=== PATIENT | male | born 2000 | race Caucasian/White ===

== ENCOUNTER 2021-06-02 10:09 | Emergency (ER) | payer OTHER, SELFPAY ==
[2021-06-02 10:44] VITALS: BP 138/89; PULSE 91; RESP 18; TEMP 36.8; O2SAT 99; BMI 30.1
--- NOTE | 2021-06-02 10:53 | HMH.EDUTC ---
[facility] [place] Clinical Impression: URI (upper respiratory infection) Qualifiers: URI type: unspecified URI Qualified Code(s): J06.9 - Acute upper respiratory infection, unspecified Disposition: Home, Self-Care Condition on Discharge: Good Instructions: Sinusitis, DI for Sinusitis, Cough Additional Instructions: *Monitor Temp, Over the counter Motrin or Tylenol as directed/as needed Tylenol every 4 hours and Motrin every 6 hours (as long as your family doctor has told you that you can take it) for fever or pain. and straight to ER if unable to lower temp less than 101.0 after medication given *Warm salt water gargles may help to soothe the throat *Throat Lozenges *Warm fluids like tea with honey may help to soothe the throat *Sleep elevated *Humidifier/Vaporizer Follow up IMMEDIATELY for new or worsening symptoms or no Noticeable improvement over the next 48-72 hours. 911 for difficulty breathing or swallowing You were tested for today for COVID19 your test result should be back in the next 24-48 hours, you may check your COVID test results on line at the [facility] my Health Portal If you are positive the Health Dept will be contacting you also Make sure to take your Vitamins Vit. C Vit D and Zinc if you can take them Prescriptions: methylPREDNISolone [Medrol 4mg tab] 4 mg PO DIRECTED #21 tab Transmission Status: Pending to [facility] # Azithromycin [Z-Papi 250mg Tab] 250 mg PO DIRECTED #6 tab Transmission Status: Pending to [facility] # Referrals: Justino Sandoval MD [Primary Care Provider] - As needed Time of Disposition: 11:01 Medical Decision Making - North Inquiry Pt receiving controlled substance: No North was queried for this patient: No Vital Signs: 06/02/21 10:44 Temperature 98.3 F Temperature Source Oral Pulse Rate [Right Brachial] 91 H Respiratory Rate 18 Blood Pressure [Right Arm] 138/89 Blood Pressure Mean [Right Arm] 105 Blood Pressure Source [Right Arm] Automatic Cuff Blood Pressure Position [Right Arm] Sitting 02 Sat by Pulse Oximetry 99 - Lab Data Lab results reviewed: Yes: I reviewed the patient's lab results. Orders (Tests/Meds): ORDERS Category Date Time Status Covid-19 Nasal PCR ([facility]) Routine Lab 06/02/21 10:43 Received [facility] [place] HPI - General Stated complaint: sore throat, cough, weakness, bodyaches Time Seen by Provider: 06/02/21 10:53 Description of Symptoms (Recalled from Triage Doc. by RN): pt c/o of body aches, chills, nasal congestion, fatigue, and nausea x's 2 days HEENT Symptoms (Recalled from RN notes): Yes Resp Symptoms (Recalled from RN notes): Yes Skin Symptoms (Recalled from RN notes): No MS Symptoms (Recalled from RN notes): No Functional Status (Recalled from RN notes): wnl - History of Present Illness Provider Complaint: Patient state that he has not felt well for several days State that he has been having cough, scratchy throat body aches, chills sinus congestion/pressure and nausea States that today he was still not feeling well so he came in to get checked out - Related Data Previous Rx's Medication Instructions Recorded amoxicillin 500 mg capsule 500 mg PO Q12H 10 Days #20 cap 04/22/19 Azithromycin [Z-Papi 250mg Tab] 250 mg PO DIRECTED #6 tab 06/02/21 methylPREDNISolone [Medrol 4mg 4 mg PO DIRECTED #21 tab 06/02/21 tab] Allergies Allergy/AdvReac Type Severity Reaction Status Date / Time No Known Allergies Allergy Verified 04/22/19 17:19 - Worker's Comp Is this a Worker's Comp case?: No [facility] History - Hepatitis A Screen Drug use history?: No High risk sexual behaviors?: No History of sexually transmitted infection?: No Currently employed?: No Childcare worker?: No Do you have indoor plumbing?: Yes Do you have electricity?: Yes Attestation statement:: This patient has been screened for Hepatitis A risk factors. I have reviewed the patient's past medical histo
[2021-06-02 10:55] LABS: UTC Influenza A Antigen Negative (Negative); UTC Influenza B Antigen Negative (Negative)
[2021-06-02 12:16] VITALS: BP 138/89; PULSE 91; RESP 18; TEMP 36.8; O2SAT 99
== END 2021-06-02 12:17 | disposition home or self-care (01) ==
PROVIDERS: Emergency Provider Nurse Practitioner; PCP Family Medicine
DX: J06.9 Acute upper respiratory infection, unspecified (principal); Z20.822 Contact with and (suspected) exposure to COVID-19
CPT/HCPCS: 87804; 99202; C9803; G0463; U0003; U0005

== ENCOUNTER 2021-10-10 15:35 | Emergency (ER) | payer OTHER, SELFPAY ==
[2021-10-10 15:40] VITALS: BP 139/80; PULSE 73; RESP 19; TEMP 37; O2SAT 98
--- NOTE | 2021-10-10 15:53 | HMH.EDUTC ---
[facility] – [place] Disposition Clinical Impression: Rash Disposition: Home, Self-Care Condition on Discharge: Good Instructions: DI for Rash, Methylprednisolone Additional Instructions: Oatmeal bathes may help to soothe the skin and help with itching of the rash Over the counter Benadryl may help with itching Start oral steriods tomorrow 10/11/21 Over the counter Calamine lotion may help with drying of the rash Follow up with your Family Doctor if no improvement or any worsening of symptoms Straight to ER if any life threatening symptoms Prescriptions: methylPREDNISolone [Medrol 4mg tab] 4 mg PO DIRECTED #21 tab Transmission Status: Received by [facility] #[id number] Referrals: Provider,Referral, [Primary Care Provider] - Medical Decision Making - North Inquiry Pt receiving controlled substance: No North was queried for this patient: No Vital Signs: 10/10/21 15:40 10/10/21 16:11 Temperature 98.6 F 98.6 F Temperature Source Oral Pulse Rate 73 Pulse Rate [Right Brachial] 73 Respiratory Rate 19 19 Blood Pressure 139/80 Blood Pressure [Right Arm] 139/80 Blood Pressure Mean [Right Arm] 99 Blood Pressure Source [Right Arm] Automatic Cuff Blood Pressure Position [Right Arm] Sitting 02 Sat by Pulse Oximetry 98 Oxygen Delivery Method Room Air Orders (Tests/Meds): ED MEDICATIONS Discontinued Medications Generic Name Dose Route Start Last Admin Trade Name Vania PRN Reason Stop Dose Admin Methylprednisolone Sodium Succinate 125 mg 10/10/21 15:57 10/10/21 16:10 Methylprednisolone Sod Succ 125mg Vial IM 10/10/21 15:58 125 mg ONCE ONE Administration [facility] [place] HPI - General Stated complaint: bites on body Time Seen by Provider: 10/10/21 15:53 Mode of Arrival: Ambulatory Source of Information: Patient Limitations: No Limitations Description of Symptoms (Recalled from Triage Doc. by RN): PATIENT C/O BITES TO BILATERAL ARMS X 1 WEEK HEENT Symptoms (Recalled from RN notes): No Resp Symptoms (Recalled from RN notes): No Skin Symptoms (Recalled from RN notes): Yes MS Symptoms (Recalled from RN notes): No Functional Status (Recalled from RN notes): WNL - History of Present Illness Provider Complaint: Patient states that he has what he thinks is bites all over both arms States that he has been cutting weeds and has had itchy rash on his arms for about a week that has not got any better States that it is itchy and now spread on his hands and arm States that he is not sure what he may have got into but itching worse today so he came in - Related Data Previous Rx's Medication Instructions Recorded methylPREDNISolone [Medrol 4mg 4 mg PO DIRECTED #21 tab 10/10/21 tab] Allergies Allergy/AdvReac Type Severity Reaction Status Date / Time No Known Allergies Allergy Verified 04/22/19 17:19 - Worker's Comp Is this a Worker's Comp case?: No [facility] History - Hepatitis A Screen Attestation statement:: This patient has been screened for Hepatitis A risk factors. I have reviewed the patient's past medical history: Yes Medical History: Denies:: Diabetes Mellitus Type 1, Diabetes Mellitus Type 2, MRSA Laterality Cases: Bilateral: Tonsillectomy Amputation: No - Social History Smoking Status: Never smoker Alcohol Intake: never Occupational Status: employed Household Members: family Family Hx:: Non-contributory ROS Obtained: Yes All systems reviewed & no additional complaints, Yes Systems reviewed as appropriate & no additional complaints - Constitutional Constitutional: Reports system reviewed and no additional complaints, except as docu, Denies body ache, Denies chills, Denies fever(s) - ENT Ears, Nose, Mouth, and Throat: Reports system reviewed and no additional complaints, except as docu - Cardiovascular Cardiovascular: Reports system reviewed and no additional complaints, except as docu - Respiratory Respiratory: Reports system reviewed and no additio
[2021-10-10 16:11] VITALS: BP 139/80; PULSE 73; RESP 19; TEMP 37; O2SAT 98
== END 2021-10-10 16:35 | disposition home or self-care (01) ==
PROVIDERS: Emergency Provider Nurse Practitioner
DX: R21 Rash and other nonspecific skin eruption (principal)
CPT/HCPCS: 96372; 99212; G0463